=== PATIENT | female | born 1990 | race African-American/Black ===

== ENCOUNTER 2019-07-01 09:32 | Emergency (ER) | payer OTHER ==
--- NOTE | 2019-07-01 10:36 | XRAY Report ---
Reason: CHEST PX Procedure Date: 07/01/2019 Accession Number: [id number] / [id number] Procedure: XR - Chest 2 View X-Ray CPT Code: 42268 Final Report FULL RESULT: EXAM: CHEST RADIOGRAPHY EXAM DATE: 07/01/2019 10:05 AM. CLINICAL HISTORY: CHEST PX. COMPARISON: None. TECHNIQUE: 2 views. FINDINGS: Lungs/Pleura: No focal opacities evident. No pleural effusion. No pneumothorax. Normal volumes. Mediastinum: Heart and mediastinal contours are unremarkable. Other: None. IMPRESSION: No focal consolidation. RADIA
[2019-07-01 10:51] LABS: BASOPHILS # (AUTO) 0.1 10^3/uL (0.0-0.1); EOSINOPHILS # (AUTO) 0.2 10^3/uL (0.0-0.7); EOSINOPHILS % (AUTO) 3.5 %; HGB - HEMOGLOBIN 12.9 g/dL (12.0-16.0); LYMPHOCYTES # (AUTO) 1.7 10^3/uL (1.5-3.5); LYMPHOCYTES % (AUTO) 34.6 %; MEAN CORPUSCULAR HGB CONC 32.2 g/dL (32.0-36.0); MEAN CORPUSCULAR VOLUME 96.4 fL (81.0-99.0); MEAN PLATELET VOLUME 12.3 fL (7.9-10.8); MONOCYTES # (AUTO) 0.4 10^3/uL (0.0-1.0); MONOCYTES % (AUTO) 8.6 %; NEUTROPHILS # (AUTO) 2.5 10^3/uL (1.5-6.6); NEUTROPHILS % (AUTO) 52.1 %; PLT - PLATELET COUNT 254 10^3/uL (130-450); RED BLOOD COUNT 4.16 10^6/uL (4.20-5.40); RED CELL DISTRIBUTION WIDTH 14.2 % (12.0-15.0); WHITE BLOOD COUNT 4.9 x10^3/uL (4.8-10.8)
[2019-07-01 11:55] LABS: ALBUMIN/GLOBULIN RATIO 0.9 (1.0-2.2); BILIRUBIN,TOTAL 0.6 mg/dL (0.2-1.0); CALCIUM 9.4 mg/dL (8.5-10.3); CREATININE 0.7 mg/dL (0.4-1.0); TOTAL PROTEIN 8.3 g/dL (6.7-8.2)
--- NOTE | 2019-07-01 13:00 | ED Physician Documentation ---
<Gina Domínguez L - Last Filed: 07/01/19 13:00> History of Present Illness - Stated complaint Stated Complaint: CHEST PX - Chief complaint Chief Complaint: General PD PAST MEDICAL HISTORY - Past Medical History Past Medical History: Yes Cardiovascular: None Respiratory: None Neuro: None Endocrine/Autoimmune: None GI: None DRAW HAND: None : None HEENT: None Psych: None Musculoskeletal: None Derm: None - Past Surgical History Past Surgical History: Yes /DRAW HAND: section - Allergies Allergies/Adverse Reactions: Allergies Allergy/AdvReac Type Severity Reaction Status Date / Time No Known Drug Allergies Allergy Verified 07/01/19 09:44 - Social History Does the pt smoke?: Yes Smoking Status: Current every day smoker Does the pt drink ETOH?: Yes ETOH Use: Liquor Does the pt have substance abuse?: No - Immunizations Immunizations are current?: Yes - POLST Patient has POLST: No Departure - Departure Disposition: 01 Home, Self Care Clinical Impression: Chest pain Qualifiers: Chest pain type: unspecified Qualified Code(s): R07.9 - Chest pain, unspecified Condition: Good Instructions: ED Chest Pain Atypical Unkn Cause, ED Chest Pain Pleurisy Follow-Up: your,doctor in 1 week [Other] Comments: You can use Motrin or Tylenol as needed for pain at home. You should follow-up with your doctor within a week for further care. Your testing is normal today. <PranayHoracio L - Last Filed: 07/01/19 13:45> History of Present Illness - History obtained from History obtained from: Patient, Family - History of Present Illness Timing: How many days ago (3) Pain level max: 3 Pain level now: 1 - Additonal information Additional information: 29-year-old female with constant left-sided chest pain for the past 3 to 4 days. She states that intermittently she has had this for years. Worse with movement and better with rest. Does not change with eating and drinking. She does have 2 small children. Worse when she twists or uses her left arm. No cardiac history. Denies any medications. No family history of young cardiac . No family history of young cardiac disease. No vomiting. Denies any possibility of . No recent surgeries. No recent immobilization. No hormone therapies Review of Systems Constitutional: denies: Fever, Chills Throat: denies: Sore throat Cardiac: denies: Palpitations, Calf pain Respiratory: denies: Cough Skin: denies: Rash Musculoskeletal: denies: Neck pain, Back pain Neurologic: denies: Headache PD PAST MEDICAL HISTORY - Past Medical History Past Medical History: No - Past Surgical History Past Surgical History: Yes /DRAW HAND: section - Social History Does the pt smoke?: Yes Smoking Status: Current every day smoker Does the pt drink ETOH?: Yes ETOH Use: Liquor Does the pt have substance abuse?: No - Family History Family history: reports: Non contributory - Immunizations Immunizations are current?: Yes - POLST Patient has POLST: No PD ED PE NORMAL - Vitals Vital signs reviewed: Yes - General General: Alert and oriented X 3, No acute distress, Well developed/nourished - HEENT HEENT: Moist mucous membranes - Neck Neck: Supple, no meningeal sign - Cardiac Cardiac: RRR, No murmur, Strong equal pulses - Respiratory Respiratory: No respiratory distress, Clear bilaterally - Abdomen Abdomen: Soft, Non tender, Non distended - Derm Derm: Warm and dry - Extremities Extremities: No edema, No calf tenderness / cord - Neuro Neuro: Alert and oriented X 3 - Psych Psych: Normal mood, Normal affect - Free text exam Free text exam: Tender palpation over the left anterior chest wall. Reproduces her pain. Results - Vitals Vitals: Vital Signs - 24 hr 07/01/19 07/01/19 07/01/19 09:41 11:07 11:10 Temperature 36.8 C 36.5 C 36.5 C Heart Rate 64 70 Respiratory 18 15 Rate Blood Pressure 130/70 140/88 H O2 Saturation 100 97 07/01/19 07/01/19 11:33 12:52 Temperature Heart Rate 69 71 Respiratory 15 16 Rate Blood Pressure 140/88 H 135/71 H O2 Saturation 97 98 Oxygen O2 Source Room air - EKG (time done) 1014 Rate: Rate (enter#) (77) Rhythm: NSR [place]: Normal Intervals: Normal IA QRS: Normal Ischemia: Normal ST segments, Q waves (v1-2,III) - Labs Labs: Laboratory Tests 07/01/19 07/01/19 07/01/19 10:37 10:37 10:37 WBC 4.9 RBC 4.16 L Hgb 12.9 Hct 40.1 MCV 96.4 MCH 31.0 MCHC 32.2 RDW 14.2 Plt Count 254 MPV 12.3 H Neut # (Auto) 2.5 Lymph # (Auto) 1.7 [place] # (Auto) 0.4 Eos # (Auto) 0.2 Baso # (Auto) 0.1 Absolute Nucleated RBC 0.00 Nucleated RBC % 0.0 Sodium 136 Potassium 4.1 Chloride 103 Carbon Dioxide 24 Anion Gap 9.0 BUN 10 Creatinine 0.7 Estimated GFR (MDRD) 118 Glucose 88 Calcium 9.4 Total Bilirubin 0.6 AST 43 H ALT 40 Alkaline Phosphatase 73 Troponin I High Sens < 2.3 L Total Protein 8.3 H Albumin 4.0 Globulin 4.3 H Albumin/Globulin Ratio 0.9 L Lipase 25 - Rads (name of study) Chest x-ray Radiology: Prelim report reviewed, EMP read contemporaneously, See rad report (No acute disease) PD MEDICAL DECISION MAKING - ED course Complexity details: reviewed results, re-evaluated patient, considered differential (No ST elevation [place], no aortic dissection, no PE, no tension pneumothorax, no aortic aneurysm), d/w patient, d/w family ED course: Patient presents to the emergency department atypical chest pain. Negative troponin after 3 days of constant pain. Normal exam other than chest wall tenderness. Likely muscular strain versus pleurisy versus formation on the chest wall. No evidence of pulmonary embolus. No evidence of acute coronary syndrome. Patient counseled regarding signs and symptoms for which I believe and urgent re-evaluation would be necessary. Patient with good understanding of and agreement to plan and is comfortable going home at this time This document was made in part using voice recognition software. While efforts are made to proofread this document, sound alike and grammatical errors may occur.
[2019-07-01 14:05] VITALS: BP 117/73
== END 2019-07-01 14:05 | disposition home or self-care (01) ==
LOC: ED 09:32
DX: R07.9 Chest pain, unspecified (principal); F17.200 Nicotine dependence, unspecified, uncomplicated
CPT/HCPCS: 36415; 71046; 80053; 83690; 84484; 85025; 93005; 99284